=== PATIENT | male | born 1970 | race African-American/Black ===

== ENCOUNTER 2017-09-04 12:24 | Emergency (ER) | payer OTHER ==
[~2017-09-04] VITALS: Ht 162.6 cm; Wt 195.8 kg
[2017-09-04 13:34] LABS: EOSINOPHIL (%) 0.1 % (0-5); HEMATOCRIT 47.1 % (38.0-50.0); IMMATURE GRANULOCYTE (%) 0.6 % (0.0-0.7); IMMATURE GRANULOCYTE COUNT 0.1 K/uL; INSTRUMENT ABS NEUTROPHIL CT 13.5 K/uL; LYMPHOCYTE COUNT 0.5 K/uL (1.0-2.8); MCH 28.5 PG (29.0-34.0); MCHC 32.1 G/DL (30.0-36.0); MCV 88.9 FL (86-99); MONOCYTE (%) 3.2 % (3-12); MONOCYTE COUNT 0.5 K/uL (0-0.8); NEUTROPHIL (%) 92.8 % (45-76); NEUTROPHIL COUNT 13.5 K/uL (1.8-6.4); PLATELET COUNT 202 K/uL (156-360); RBC DIS.WIDTH-SD 42.6 % (39-53); WHITE BLOOD COUNT 14.5 K/uL (4.1-10.2)
[2017-09-04 13:43] LABS: CHLORIDE 103 mEq/L (99-109); POTASSIUM 4.3 mEq/L (3.7-5.4); SODIUM 136 mEq/L (136-147)
[2017-09-04 13:45] LABS: GLUCOSE 109 mg/dL (70-99)
[2017-09-04 13:47] LABS: ANION GAP 9 MEQ/L (2-14)
[2017-09-04 13:49] LABS: GFR ESTIMATE (CALCULATED) > 59 mL/min/
[2017-09-04 13:50] LABS: UREA NITROGEN (BUN) 13 mg/dL (9-23)
[2017-09-04 13:55] LABS: TROP-I INTERPRETATION NEGATIVE; TROPONIN-I < 0.01 ng/mL (0.0-0.30)
[2017-09-04] MEDS ORDERED: PREDNISONE20 MG PO (14:28)
[2017-09-04 14:43] VITALS: BP 131/75
== END 2017-09-04 14:44 ==
LOC: EME 12:24
PROVIDERS: Emergency Medicine
DX: L50.0 Allergic urticaria (principal); R14.2 Eructation; T78.1XXA Other adverse food reactions, not elsewhere classified, initial encounter; E66.01 Morbid (severe) obesity due to excess calories; Z68.45 Body mass index [BMI] 70 or greater, adult; Z87.891 Personal history of nicotine dependence; Z88.0 Allergy status to penicillin
CPT/HCPCS: 80048; 84484; 85025; 93005; 99281; 99285; J1200; J2930; J7040; S0028